=== PATIENT | male | born 1950 | race Caucasian/White ===

== ENCOUNTER 2016-08-06 21:07 | Emergency (ER) | payer MEDICARE, BC ==
[~2016-08-06 21:07] MED LIST: Acetaminophen/oxyCODONE 325-5 MG Tab PO ONE
--- NOTE | 2016-08-06 21:27 | EDM.PDOC ---
ED HPI GENERAL MEDICAL PROBLEM - General Chief Complaint: Upper Extremity Injury/Pain Stated Complaint: elbow Time Seen by Provider: 08/06/16 21:20 Source of Information: Reports: Patient History Limitations: Reports: No Limitations - History of Present Illness INITIAL COMMENTS - FREE TEXT/NARRATIVE: History and physical: History of present illness: [Patient comes to the emergency room complaining of left forearm and elbow pain. He was kicked by a horse in his left forearm just prior to arrival to the ER. He reports bleeding due to a puncture type laceration over his left medial forearm. He describes an aching sensation in his left elbow. Has less pain with keeping arm in a flexed position than with extension. No other injuries were sustained. Cannot remember the date of his last tetanus shot. Patient takes a baby aspirin daily. ] Review of Systems: As per history of present illness and below otherwise all systems reviewed and negative. Past medical history: As per history of present illness and as reviewed below otherwise noncontributory. Surgical history: As per history of present illness and is reviewed below other shay noncontributory. Social history: No reported history of drug or alcohol abuse. Family history: As per history of present illness and is reviewed below otherwise noncontributory. Physical exam: HEENT: Atraumatic, normocephalic. Extremities: Puncture type laceration to left medial forearm. Swelling and deformity is appreciated to the left medial forearm, over the proximal ulnar aspect. Capillary Refill less than 2 seconds to fingers. Neurovascular unremarkable. Neuro: Awake, alert, oriented. Exam nonfocal. Diagnostics: [Left forearm x-ray] Therapeutics: [Percocet 5/325 mg by mouth] Impression: [Left proximal ulnar fracture] Plan: [Discussed with patient and his that he has a left ulnar fracture. This is discussed with Dr. Tsai, orthopedist homemaker companion at [facility]. He is unable to view radiology films at this time. He recommends patient follow-up in his clinic tomorrow morning for further evaluation. Directions are given to patient. Patient complains of pain. IV or IM injection of pain medication is offered which patient declines stating that he would prefer oral route. Laceration is cleansed and continues to seep blood. Will opt not to suture the laceration to prevent hematoma formation. Pressure dressing is applied without difficulty. Patient is placed in a long-arm splint with sling applied. He is sent home with 6 tablets of Percocet 5/325 mg with instructions to take 1 tablet every 6 hours as needed for pain. He may alternate with ibuprofen. He is given a prescription for cephalexin 500 mg #20 sig 1 by mouth every 6 hours no refills, per Dr. Tsai's instructions. He is given 1 dose in the ER. Ice may help , rest arm and wear sling. Adacel given in ER. Patient is in agreement with today's plan. All of his questions are answered and concerns were addressed. ] Definitive disposition and diagnosis is appropriate pending reevaluation and review of above. Left Lower Arm Pain Score (Numeric/FACES): 5 - Related Data Allergies Allergy/AdvReac Type Severity Reaction Status Date / Time No Known Allergies Allergy Verified 08/06/16 21:41 Home Meds: Home Meds Aspirin 81 mg PO DAILY 08/06/16 [History] Ramipril 5 mg PO BID 08/06/16 [History] atorvaSTATin [Lipitor] 20 mg PO DAILY 08/06/16 [History] cloNIDine [Catapres] 0.2 mg PO Q12HR 08/06/16 [History] Review of Systems - Review of Systems Review Of Systems: ROS reveals no pertinent complaints other than HPI. ED EXAM, GENERAL - Physical Exam Exam: See Below Course - Vital Signs Last Recorded V/S: Last Vital Signs Temp 97 F 08/06/16 21:44 Pulse 56 L 08/06/16 21:44 Resp 20 08/06/16 21:44 BP 147/90 H 08/06/16 21:44 Pulse Ox 97 08/06/16 21:44 - Orders/Labs/Meds Orders: Active Orders 24 hr Category Date Time Status Vaccines to be Administered [RC] PER UNIT ROUTINE Care 08/06/16 22:21 Active Forearm 2V Lt [CR] Stat Exams 08/06/16 21:21 Taken Meds: Medications Discontinued Medications Generic Name Dose Route Start Last Admin Trade Name Jose R PRN Reason Stop Dose Admin Cephalexin 500 mg 08/06/16 22:05 08/06/16 22:36 Keflex PO 08/06/16 22:06 500 mg ONETIME ONE Administration Diphtheria/Tetanus/Acell Pertussis 0.5 ml 08/06/16 22:21 08/06/16 22:37 Adacel IM 08/06/16 22:22 0.5 ml .ONCE ONE Administration Oxycodone/Acetaminophen 1 tab 08/06/16 21:58 08/06/16 22:03 Percocet 325-5 Mg PO 08/06/16 21:59 1 tab ONETIME ONE Administration Oxycodone/Acetaminophen 3 packet 08/06/16 22:04 08/06/16 22:40 Take Home: Acetaminophen/Oxycodon, 2 Tab Pack PO 08/06/16 22:05 3 packet ONETIME ONE Administration Departure - Departure Time of Disposition: 22:20 Disposition: Home, Self-Care 01 Condition: Good Clinical Impression: Ulnar fracture Qualifiers: Encounter type: initial encounter Ulna location: proximal ulna Fracture type: open Laterality: left - Discharge Information Referrals: Evan Paez MD [Primary Care Provider] - Forms: ED Department Discharge Additional Instructions: The following information is given to patients seen in the emergency department who are being discharged home. This information is to outline your options for follow-up care and provides all patient seen in our emergency department with a follow-up referral. The need for follow-up, as well as the timing and circumstances, are variable depending upon the specifics of each emergency department visit. If you don't have a primary care physician on staff, we will provide you with a referral. We always advise to contact your personal physician following an emergency department visit to inform them of the circumstances of the visit and for follow-up with them and/or the need for any referrals to a consulting specialist. The emergency department will also refer you to a specialist when appropriate. This referral assures that you have the opportunity for follow-up care with a specialist. All of these measures are taken in an effort to provide you with optimal care, which includes your follow-up. Under all circumstances we always encourage you to contact your private physician who remains a resource for coordinating your care. When calling for follow-up care, please make the office aware that this follow-up is from your recent emergency room visit. If for any reason you are refused follow-up please contact the [facility] emergency department at [phone] and ask to speak to the emergency department nurse. Follow-up with Dr. Tsai tomorrow morning before noon. Show up at his office at the address listed above below. Keep your arm in the splint and sling. [facility] [address] [place] [id number] Return to ER as needed as discussed. - My Orders Last 24 Hours: My Active Orders 08/06/16 21:21 Forearm 2V Lt [CR] Stat 08/06/16 22:21 Vaccines to be Administered [RC] PER UNIT ROUTINE - Assessment/Plan Last 24 Hours: My Active Orders 08/06/16 21:21 Forearm 2V Lt [CR] Stat 08/06/16 22:21 Vaccines to be Administered [RC] PER UNIT ROUTINE
[2016-08-06 21:46] VITALS: BP 147/90
[2016-08-06] MEDS ORDERED: Acetaminophen/oxyCODONE 325-5 MG Tab PO ONE (21:58)
[2016-08-06] MEDS ORDERED: Take Home: Acetaminophen/oxyCODONE 325-5 MG, 2 Tab Pack PO ONE (22:04)
[2016-08-06] MEDS ORDERED: Cephalexin 500 MG Cap PO ONE (22:05)
[2016-08-06] MEDS ORDERED: Diphtheria,Pertussis(Acell),Tetanus Vaccine 0.5 ML Syringe IM ONE (22:21)
== END 2016-08-06 22:50 | disposition home or self-care (01) ==
LOC: CC.ED 21:07
DX: S52.002B Unspecified fracture of upper end of left ulna, initial encounter for open fracture type I or II (principal); W55.12XA Struck by horse, initial encounter; Z79.82 Long term (current) use of aspirin; Z79.899 Other long term (current) drug therapy
CPT/HCPCS: 73090; 90471; 90715; 99283; A9270; 29105

== ENCOUNTER 2024-04-16 13:05 | Emergency (ER) | payer MEDICARE, BC ==
[2024-04-16 13:16] VITALS: BP 140/83; PULSE 55
[2024-04-16 13:21] LABS: BASOPHILS ABSOLUTE AUTO 0.03 10^3/uL (0.00-0.50); BASOPHILS PERCENT AUTO 0.6 % (0-1); EOSINOPHILS ABSOLUTE AUTO 0.08 10^3/uL (0.00-1.50); EOSINOPHILS PERCENT AUTO 1.6 % (0-6); HEMATOCRIT 42.7 % (42.0-52.0); HEMOGLOBIN 14.1 g/dL (14.0-18.0); IMMATURE GRAN ABSOLUTE AUTO 0.01 10^3/uL (0.00-0.49); IMMATURE GRAN PERCENT AUTO 0.2 % (0.0-4.9); LYMPHOCYTES ABSOLUTE AUTO 1.29 10^3/uL (0.60-5.00); LYMPHOCYTES PERCENT AUTO 26.2 % (24-44); MEAN CORPUSCULAR HEMOGLOBIN 30.1 pg (27.0-32.0); MEAN CORPUSCULAR VOLUME 91.2 fL (83.0-97.0); MONOCYTES ABSOLUTE AUTO 0.58 10^3/uL (0.00-1.50); MONOCYTES PERCENT AUTO 11.8 % (0-10); NEUTROPHILS ABSOLUTE AUTO 2.94 x10^3/uL (1.80-8.00); NEUTROPHILS PERCENT AUTO 59.6 % (41-71); PLATELET COUNT,PLT 150 10^3/uL (150-400); RED BLOOD CELL COUNT 4.68 x10^6/uL (4.50-6.00); WHITE BLOOD CELL COUNT,WBC 4.9 10^3/uL (4.0-11.0)
[2024-04-16] MEDS: Aspirin 81 MG Tab.Chew PO ONE (13:28)
[2024-04-16 13:39] LABS: ALANINE AMINOTRANSFERASE,ALT 24 U/L (12-78); ALBUMIN 3.5 g/dL (3.4-5.0); ALKALINE PHOSPHATASE 95 U/L (46-116); ASPARTATE AMNIOTRANSFERASE,AST 19 U/L (15-37); BILIRUBIN TOTAL 0.4 mg/dL (0.0-1.0); BLOOD UREA NITROGEN,BUN 21 mg/dL (7-18); CALCIUM 9.2 mg/dL (8.4-10.1); CARBON DIOXIDE,CO2 27 mmol/L (21-32); CHLORIDE,CL 106 mEq/L (98-106); ESTIMATED GFR 78 mL/min (>=60); GLUCOSE RANDOM 108 mg/dL (75-99); LIPASE 64 U/L (16-77); POTASSIUM,K 4.2 mEq/L (3.5-5.0); PROTEIN TOTAL,TP 6.9 g/dL (6.4-8.2); SODIUM,NA 142 mEq/L (136-145)
[2024-04-16 13:40] LABS: C-REACTIVE PROTEIN < 0.50 mg/dL (<=0.50)
== END 2024-04-16 14:20 | disposition home or self-care (01) ==
LOC: CC.ED 13:05
DX: R07.89 Other chest pain (principal); M79.602 Pain in left arm; I10 Essential (primary) hypertension; I48.91 Unspecified atrial fibrillation; Z79.899 Other long term (current) drug therapy
CPT/HCPCS: 36415; 71046; 80053; 83690; 83735; 84484; 85025; 86140; 93005; 99285; A9270-GY